=== PATIENT | female | born 1970 ===

== ENCOUNTER 2017-09-12 18:26 | Emergency (ER) | payer SELFPAY ==
[2017-09-12 18:26] VITALS: BMI 33.2
[2017-09-12 19:05] VITALS: BP 153/87; PULSE 69; RESP 16; TEMP 98.1; O2SAT 100
[2017-09-12] MEDS ORDERED: Naproxen 500 MG TAB PO STA (19:19)
[2017-09-12] MEDS ORDERED: Naproxen 500 MG TAB PO ONE (19:26)
--- NOTE | 2017-09-12 20:14 | ED PDOC ---
HPI: Back Time Seen by Provider: 09/12/17 19:15 Chief Complaint (Nursing): Back Pain Chief Complaint (Provider): Shoulder Pain History Per: Patient History/Exam Limitations: no limitations Onset/Duration Of Symptoms: Days (x1) Current Symptoms Are (Timing): Still Present Additional Complaint(s): Aniyah Martel is a 46 year old female with no past medical history who presents to the ED after tripping and falling backwards on the sidewalk @16:30. Denies loss of consciousness or head trauma. Notices scratches on left upper back and left shoulder pain. States she took nothing for pain. PMD: Provider TBD Past Medical History Reviewed: Historical Data, Nursing Documentation, Vital Signs Vital Signs: Last Vital Signs Temp 98.1 F 09/12/17 18:53 Pulse 69 09/12/17 18:53 Resp 16 09/12/17 18:53 BP 153/87 H 09/12/17 18:53 Pulse Ox 100 09/12/17 18:53 - Family History Family History: States: Unknown Family Hx - Home Medications Home Medications: Ambulatory Orders Medication Instructions Recorded Amoxicillin/Clavulanate [Augmentin 1 tab PO BID #10 tab 08/20/14 875 MG-125 MG] Naproxen 500 mg PO BID PRN #20 tab 08/20/14 Naproxen 1 tab PO Q12 PRN #14 tab 09/12/17 - Allergies Allergies/Adverse Reactions: Allergies Allergy/AdvReac Type Severity Reaction Status Date / Time No Known Allergies Allergy Verified 09/12/17 18:53 Review of Systems ROS Statement: Except As Marked, All Systems Reviewed And Found Negative Musculoskeletal: Positive for: Shoulder Pain (left) Skin: Positive for: Other (Upper back abrasions) Physical Exam - Reviewed Nursing Documentation Reviewed: Yes Vital Signs Reviewed: Yes - Physical Exam Appears: Positive for: Well, Non-toxic, No Acute Distress Head Exam: Positive for: ATRAUMATIC, NORMAL INSPECTION, NORMOCEPHALIC Skin: Positive for: Normal Color. Negative for: Rash Eye Exam: Positive for: Normal appearance Back: Negative for: Normal Inspection (Abrasions to upper thoracic back), L CVA Tenderness, R CVA Tenderness, Vertebral Tenderness Extremity: Negative for: Normal ROM (Limited left shoulder ROM due to pain.) Neurologic/Psych: Positive for: Alert, Oriented - ECG O2 Sat by Pulse Oximetry: 100 (RA) Pulse Ox Interpretation: Normal - Progress ED Course And Treament: xry of shoulder: neg for fx Medical Decision Making Medical Decision Making: Time: 19:19 Initial Impression: Fall Plan: --Naproxen 500 mg PO --X-Ray Shoulder Left --Reevaluation Scribe Attestation: Documented by Jaime Benson, acting as a scribe for Jeremias Borjas PA-C Provider Scribe Attestation: All medical record entries made by the Scribe were at my direction and personally dictated by me. I have reviewed the chart and agree that the record accurately reflects my personal performance of the history, physical exam, medical decision making, and the department course for this patient. I have also personally directed, reviewed, and agree with the discharge instructions and disposition. Disposition - Clinical Impression Clinical Impression: Shoulder contusion - Patient ED Disposition Is Patient to be Admitted: No - Disposition Referrals: [facility] [Outside] Disposition: Routine/Home Disposition Time: 19:58 Condition: FAIR Prescriptions: Naproxen 1 tab PO Q12 PRN #14 tab PRN Reason: Pain, Moderate (4-7) Instructions: Contusion in Adults (ED) Forms: [employer] (Algerian), [facility] ED School/Work Excuse Print Language: BULGARIAN
--- NOTE | 2017-09-13 07:42 | RAD ---
PROCEDURE: Radiographs of the Left Shoulder HISTORY: shoulder injury COMPARISON: No prior. FINDINGS: BONES: No acute fracture or destructive bony lesion identified. JOINTS: Normal. Glenohumeral and acromioclavicular joints preserved. No osteoarthritis. SOFT TISSUES: Normal. OTHER FINDINGS: None. IMPRESSION: Unremarkable radiographs of the left shoulder.
== END 2017-09-12 20:37 | disposition home or self-care (01) ==
LOC: H.ER 18:26
DX: S40.012A Contusion of left shoulder, initial encounter (principal); W01.0XXA Fall on same level from slipping, tripping and stumbling without subsequent striking against object, initial encounter; Y92.480 Sidewalk as the place of occurrence of the external cause

== ENCOUNTER 2017-12-05 16:13 | Emergency (ER) | payer SELFPAY ==
[2017-12-05 16:14] VITALS: BMI 33.2
[2017-12-05 16:25] VITALS: BP 107/70; PULSE 90; RESP 16; TEMP 99.7; O2SAT 98
--- NOTE | 2017-12-05 16:37 | ED PDOC ---
HPI: CCC, URI, Sore Throat Time Seen by Provider: 12/05/17 16:25 Chief Complaint (Nursing): Flu-like Symptoms Chief Complaint (Provider): Flu-like symptoms History Per: Patient History/Exam Limitations: no limitations Onset/Duration Of Symptoms: Days (x2) Current Symptoms Are (Timing): Still Present Associated Symptoms: Fever, Sore Throat, Cough, Nasal Congestion. denies: Vomiting, Diarrhea Ear Symptoms: Bilateral: None Additional Complaint(s): Aniyah Martel is a 47 year old female, with no significant past medical history, who presents to the emergency department complaining of fever, cough, congestion and sore throat onset for x2 days. Patient denies any chest pain, shortness of breath, hemoptysis, vomit or diarrhea. No further medical complaints. PMD: None provided. Past Medical History Reviewed: Historical Data, Nursing Documentation, Vital Signs Vital Signs: Last Vital Signs Temp 99.7 F H 12/05/17 16:22 Pulse 90 12/05/17 16:22 Resp 16 12/05/17 16:22 BP 107/70 12/05/17 16:22 Pulse Ox 98 12/05/17 16:40 - Medical History PMH: No Chronic Diseases - Surgical History Surgical History: No Surg Hx - Family History Family History: States: Unknown Family Hx - Social History Current smoker - smoking cessation education provided: No Alcohol: None Drugs: Denies - Home Medications Home Medications: Ambulatory Orders Medication Instructions Recorded Amoxicillin/Clavulanate [Augmentin 1 tab PO BID #10 tab 08/20/14 875 MG-125 MG] Naproxen 500 mg PO BID PRN #20 tab 08/20/14 Naproxen 1 tab PO Q12 PRN #14 tab 09/12/17 Benzonatate [Tessalon Perle] 100 mg PO Q8 PRN #30 capsule 12/05/17 Oseltamivir [Tamiflu] 75 mg PO BID #10 cap 12/05/17 - Allergies Allergies/Adverse Reactions: Allergies Allergy/AdvReac Type Severity Reaction Status Date / Time No Known Allergies Allergy Verified 09/12/17 18:53 Review of Systems ROS Statement: Except As Marked, All Systems Reviewed And Found Negative Constitutional: Positive for: Fever ENT: Positive for: Nose Congestion, Throat Pain Cardiovascular: Negative for: Chest Pain Respiratory: Positive for: Cough. Negative for: Shortness of Breath, Hemoptysis Gastrointestinal: Negative for: Vomiting, Diarrhea Physical Exam - Reviewed Nursing Documentation Reviewed: Yes Vital Signs Reviewed: Yes - Physical Exam Comments: Appears: No acute distress Skin: Normal color, Warm, Dry Eyes: Normal appearance, PERRL, EOMI ENT: Normal Cardiac: Regular rate and rhythm Lungs: Normal breath sounds, no respiratory distress, no accessory muscle use Abdominal: No tenderness Neuro: Alert, Oriented - ECG O2 Sat by Pulse Oximetry: 98 (RA) Pulse Ox Interpretation: Normal Medical Decision Making Medical Decision Making: Initial Impression: Influenza-like illness Initial Plan: --reevaluation ~ Scribe Attestation: Documented by Iván Damon, acting as a scribe for Ayad Raphael PA-C. Provider Scribe Attestation: All medical record entries made by the Scribe were at my direction and personally dictated by me. I have reviewed the chart and agree that the record accurately reflects my personal performance of the history, physical exam, medical decision making, and the department course for this patient. I have also personally directed, reviewed, and agree with the discharge instructions and disposition. Disposition - Clinical Impression Clinical Impression: Influenza - Patient ED Disposition Is Patient to be Admitted: No - Disposition Disposition: Routine/Home Disposition Time: 20:06 Condition: STABLE Prescriptions: Benzonatate [Tessalon Perle] 100 mg PO Q8 PRN #30 capsule PRN Reason: Cough Oseltamivir [Tamiflu] 75 mg PO BID #10 cap Instructions: Influenza (ED) Forms: [employer] (Khmer), [employer] (Faroese), [facility] ED School /Work Excuse Print Language: DANISH
== END 2017-12-05 17:17 | disposition home or self-care (01) ==
LOC: H.ER 16:13
DX: J11.1 Influenza due to unidentified influenza virus with other respiratory manifestations (principal)

== ENCOUNTER 2018-01-22 09:30 | Emergency (ER) | payer SELFPAY ==
[2018-01-22 09:33] VITALS: BMI 26.9
[2018-01-22 09:35] VITALS: BP 102/66; PULSE 81; RESP 16; TEMP 97.8; O2SAT 98
[2018-01-22] MEDS ORDERED: Sodium Chloride 0.9% 1,000 ML IV STA (10:59)
--- NOTE | 2018-01-22 10:59 | ED PDOC ---
HPI: Abdomen Time Seen by Provider: 01/22/18 10:59 Chief Complaint (Nursing): Abdominal Pain Chief Complaint (Provider): abd pain History Per: Patient Additional Complaint(s): 37-year-old female presents to emergency department with abdominal pain, nausea , emesis x 1 yesterday and diarrhea x 1 yesterday. No fever or chills. Patient denies consumption of any foods that could've cause stomach upset. Patient has had slight dysuria with no vaginal bleeding or discharge. She rates her pain as a 5 out of 10. Patient thinks she may be . PMD: [facility] Past Medical History Reviewed: Historical Data, Nursing Documentation, Vital Signs Vital Signs: Last Vital Signs Temp 97.8 F 01/22/18 09:34 Pulse 81 01/22/18 09:34 Resp 16 01/22/18 09:34 BP 102/66 01/22/18 09:34 Pulse Ox 98 01/22/18 13:40 - Medical History PMH: No Chronic Diseases - Surgical History Surgical History: No Surg Hx - Family History Family History: States: No Known Family Hx - Living Arrangements Living Arrangements: With Family - Social History Current smoker - smoking cessation education provided: No Alcohol: None Drugs: Denies - Home Medications Home Medications: Ambulatory Orders Medication Instructions Recorded Amoxicillin/Clavulanate [Augmentin 1 tab PO BID #10 tab 08/20/14 875 MG-125 MG] Naproxen 500 mg PO BID PRN #20 tab 08/20/14 Naproxen 1 tab PO Q12 PRN #14 tab 09/12/17 Benzonatate [Tessalon Perle] 100 mg PO Q8 PRN #30 capsule 12/05/17 Oseltamivir [Tamiflu] 75 mg PO BID #10 cap 12/05/17 Nitrofurantoin Macrocrystals 100 mg PO BID #14 cap 01/22/18 [Macrobid] Comb No.42/Folic Acid 1 tab PO DAILY #60 ctb 01/22/18 [Prena1 Chew] - Allergies Allergies/Adverse Reactions: Allergies Allergy/AdvReac Type Severity Reaction Status Date / Time No Known Allergies Allergy Verified 09/12/17 18:53 Review of Systems ROS Statement: Except As Marked, All Systems Reviewed And Found Negative Constitutional: Negative for: Fever, Chills Cardiovascular: Negative for: Chest Pain Respiratory: Negative for: Cough Gastrointestinal: Positive for: Nausea, Vomiting, Abdominal Pain, Diarrhea Genitourinary Female: Positive for: Dysuria. Negative for: Vaginal Discharge, Vaginal Bleeding Physical Exam - Reviewed Nursing Documentation Reviewed: Yes Vital Signs Reviewed: Yes - Physical Exam Appears: Positive for: Well, Non-toxic, No Acute Distress Skin: Negative for: Rash Eye Exam: Positive for: Normal appearance Cardiovascular/Chest: Positive for: Regular Rate, Rhythm Respiratory: Positive for: Normal Breath Sounds Gastrointestinal/Abdominal: Positive for: Tenderness (Mild diffuse tenderness in all 4 quadrants with no rebound or guarding, no distention) Back: Negative for: L CVA Tenderness, R CVA Tenderness Extremity: Positive for: Normal ROM Neurologic/Psych: Positive for: Alert, Oriented - Laboratory Results Result Diagrams: 01/22/18 11:30 01/22/18 11:30 Urine POC: Positive Urine dip results: Positive for: Leukocyte Esterase (small), Blood (moderate). Negative for: Nitrate, Ketones, Glucose, Bilirubin - ECG O2 Sat by Pulse Oximetry: 98 Pulse Ox Interpretation: Normal Medical Decision Making Medical Decision Makin47 year old with abd pain Plan: Urine test Urine dip CBC CMP Lipase IVF Urine test shows faint positive, confirmed with beta Quant which is only 104, consistent with very early . Patient has no bleeding at present. UTI noted, Macrobid prescription given. Patient was referred to [facility] clinic for follow-up. Prescription for vitamins also provided. Patient aware she can return to emergency department any time if acutely worse. Disposition - Clinical Impression Clinical Impression: , Urinary tract infection - Patient ED Disposition Is Patient to be Admitted: No Counseled Patient/Family Regarding: Studies Performed, Diagnosis, Need For Followup, Rx Given - Disposition [facility]errals: [facility] [Outside] Disposition: Routine/Home Disposition Time: 13:36 Condition: STABLE Additional Instructions: Your test today is positive but you are very early. Her taking vitamins. Take antibiotics as directed. Call women's clinic today to arrange for follow-up visit. Return any time to ED if acutely worse. Prescriptions: Nitrofurantoin Macrocrystals [Macrobid] 100 mg PO BID #14 cap Comb No.42/Folic Acid [Prena1 Chew] 1 tab PO DAILY #60 ctb Instructions: Urinary Tract Infections in Adults, - The First Month Forms: [employer] (Croatian) Results - Lab Results Lab Results: 01/22/18 01/22/18 01/22/18 11:51 11:40 11:30 WBC RBC Hgb Hct MCV MCH MCHC RDW Plt Count MPV Neut % (Auto) Lymph % (Auto) Lucas % (Auto) Eos % (Auto) Baso % (Auto) Neut # (Auto) Lymph # (Auto) Lucas # (Auto) Eos # (Auto) Baso # (Auto) Sodium 139 Potassium 4.3 Chloride 105 Carbon Dioxide 23 Anion Gap 15 BUN 7 Creatinine 0.7 Est GFR ( Amer) > 60 Est GFR (Non-Af Amer) > 60 Random Glucose 97 Calcium 8.7 Total Bilirubin 0.5 AST 22 ALT 27 Alkaline Phosphatase 84 Total Protein 7.4 Albumin 3.9 Globulin 3.5 Albumin/Globulin Ratio 1.1 Lipase 79 Beta HCG, Quant 104.42 Urine Color Yellow Urine Clarity Slighty-cloudy Urine pH 5.0 Ur Specific [place] 1.017 Urine Protein Negative Urine Glucose (UA) Neg Urine Ketones Negative Urine Blood Moderate Urine Nitrate Negative Urine Bilirubin Negative Urine Urobilinogen 0.2-1.0 Ur Leukocyte Esterase Small Urine RBC (Auto) 8 H Urine Microscopic WBC 7 H Ur Squamous Epith Cells 3 01/22/18 11:30 WBC 7.0 RBC 4.28 Hgb 11.7 L Hct 35.5 MCV 82.9 D MCH 27.4 MCHC 33.1 RDW 15.6 H Plt Count 182 MPV 10.0 Neut % (Auto) 77.4 H Lymph % (Auto) 12.6 L Lucas % (Auto) 6.8 Eos % (Auto) 2.5 Baso % (Auto) 0.7 Neut # (Auto) 5.4 Lymph # (Auto) 0.9 L Lucas # (Auto) 0.5 Eos # (Auto) 0.2 Baso # (Auto) 0.0 Sodium Potassium Chloride Carbon Dioxide Anion Gap BUN Creatinine Est GFR ( Amer) Est GFR (Non-Af Amer) Random Glucose Calcium Total Bilirubin AST ALT Alkaline Phosphatase Total Protein Albumin Globulin Albumin/Globulin Ratio Lipase Beta HCG, Quant Urine Color Urine Clarity Urine pH Ur Specific [place] Urine Protein Urine Glucose (UA) Urine Ketones Urine Blood Urine Nitrate Urine Bilirubin Urine Urobilinogen Ur Leukocyte Esterase Urine RBC (Auto) Urine Microscopic WBC Ur Squamous Epith Cells
[2018-01-22 11:45] LABS: BASO % 0.7 % (0.0-2.0); EOS # 0.2 K/uL (0.0-0.7); EOS % 2.5 % (0.0-4.0); HEMOGLOBIN 11.7 g/dL (12.0-16.0); LYMPH # 0.9 K/uL (1.0-4.3); LYMPH % 12.6 % (20.0-40.0); MEAN CELL VOLUME 82.9 fl (81.0-99.0); MEAN CORPUSCULAR HEMOGLOBIN 27.4 pg (27.0-31.0); MEAN CORPUSCULAR HGB CONC 33.1 g/dL (33.0-37.0); MONO # 0.5 K/uL (0.0-0.8); MONO % 6.8 % (0.0-10.0); NEUT # 5.4 K/uL (1.8-7.0); NEUT % 77.4 % (50.0-75.0); NRBC % 0.1 % (0.0-0.0); RBC 4.28 Mil/uL (3.80-5.20); RED CELL DISTRIBUTION WIDTH 15.6 % (11.5-14.5)
[2018-01-22 11:57] LABS: ALB/GLOB RATIO 1.1 (1.0-2.1); ALT/SGPT 27 U/L (9-52); AST/SGOT 22 U/L (14-36); BLOOD UREA NITROGEN 7 mg/dl (7-17); CALCIUM 8.7 mg/dL (8.4-10.2); GFR AFRICAN-AMERICAN > 60; GFR NON-AFRICAN AMERICAN > 60; LIPASE 79 U/L (23-300)
[2018-01-22 12:29] LABS: SQUAMOUS EPITHIAL 3 /hpf (0-5); URINE BILIRUBIN NEGATIVE (NEGATIVE); URINE BLOOD MODERATE (NEGATIVE); URINE CLARITY SLIGHTY-CLOUDY (Clear); URINE COLOR YELLOW (YELLOW); URINE GLUCOSE (UA) NEG (Normal); URINE LEUKOCYTE ESTERASE SMALL Leu/uL (Negative); URINE PROTEIN NEGATIVE (NEGATIVE); URINE UROBILINOGEN 0.2-1.0 mg/dL (0.2-1.0)
[2018-01-22 12:33] LABS: ALBUMIN 3.9 g/dL (3.5-5.0)
== END 2018-01-22 14:15 | disposition home or self-care (01) ==
LOC: H.ER 09:30
DX: O23.41 Unspecified infection of urinary tract in pregnancy, first trimester (principal)
CPT/HCPCS: 80053; 81003; 81025; 83690; 84702; 85025; 87086; 99283; J7040

== ENCOUNTER 2018-02-04 07:55 | Emergency (ER) | payer SELFPAY ==
[2018-02-04 07:57] VITALS: BMI 25.2
[2018-02-04 07:59] VITALS: RESP 18
--- NOTE | 2018-02-04 08:55 | ED PDOC ---
HPI: Abdomen Time Seen by Provider: 02/04/18 08:06 Chief Complaint (Nursing): Abdominal Pain Chief Complaint (Provider): Abdominal pain and vaginal bleeding History Per: Patient History/Exam Limitations: no limitations Onset/Duration Of Symptoms: Days (02/04/18) Current Symptoms Are (Timing): Still Present Location Of Pain/Discomfort: Periumbilical Quality Of Discomfort: "Pain" Associated Symptoms: Nausea. denies: Fever Additional Complaint(s): 47 year old female presents to the ED with complaining of lower abdominal pain and vaginal bleeding onset today steamer tender. Also reports of nausea. Patient is : 5 and Para: 4 and was taking Macrobid. Her last menstrual period was on 12/12/17. She was a [facility] 2 week ago for abdominal pain. Denies fever. PMD: No Family Provider Abnormal Vaginal Bleeding: Yes Last Menstral Period: 12/12/17 : 5 Para: 4 Past Medical History Reviewed: Historical Data, Nursing Documentation, Vital Signs Vital Signs: Last Vital Signs Temp 97.8 F 02/04/18 07:58 Pulse 66 02/04/18 07:58 Resp 18 02/04/18 07:58 BP 122/74 02/04/18 07:58 Pulse Ox 98 02/04/18 09:02 - Medical History PMH: No Chronic Diseases - Surgical History Surgical History: No Surg Hx - Family History Family History: States: Unknown Family Hx - Social History Current smoker - smoking cessation education provided: No Alcohol: None Drugs: Denies - Home Medications Home Medications: Ambulatory Orders Medication Instructions Recorded Amoxicillin/Clavulanate [Augmentin 1 tab PO BID #10 tab 08/20/14 875 MG-125 MG] Naproxen 500 mg PO BID PRN #20 tab 08/20/14 Naproxen 1 tab PO Q12 PRN #14 tab 09/12/17 Benzonatate [Tessalon Perle] 100 mg PO Q8 PRN #30 capsule 12/05/17 Oseltamivir [Tamiflu] 75 mg PO BID #10 cap 12/05/17 Nitrofurantoin Macrocrystals 100 mg PO BID #14 cap 01/22/18 [Macrobid] Comb No.42/Folic Acid 1 tab PO DAILY #60 ctb 01/22/18 [Prena1 Chew] - Allergies Allergies/Adverse Reactions: Allergies Allergy/AdvReac Type Severity Reaction Status Date / Time No Known Allergies Allergy Verified 02/04/18 08:06 Review of Systems ROS Statement: Except As Marked, All Systems Reviewed And Found Negative Constitutional: Negative for: Fever Gastrointestinal: Positive for: Nausea, Abdominal Pain (lower) Genitourinary Female: Positive for: Vaginal Bleeding Physical Exam - Reviewed Nursing Documentation Reviewed: Yes Vital Signs Reviewed: Yes - Physical Exam Appears: Positive for: Non-toxic, No Acute Distress Head Exam: Positive for: ATRAUMATIC, NORMAL INSPECTION, NORMOCEPHALIC Skin: Positive for: Normal Color, Warm, Dry Eye Exam: Positive for: EOMI, Normal appearance, PERRL ENT: Positive for: Normal ENT Inspection Neck: Positive for: Normal, Painless ROM, Supple. Negative for: Decreased ROM Cardiovascular/Chest: Positive for: Regular Rate, Rhythm. Negative for: Murmur Respiratory: Positive for: Normal Breath Sounds. Negative for: Decreased Breath Sounds, Accessory Muscle Use, Respiratory Distress Gastrointestinal/Abdominal: Positive for: Soft, Tenderness (suprapublic) Back: Positive for: Normal Inspection. Negative for: L CVA Tenderness, R CVA Tenderness Extremity: Positive for: Normal ROM. Negative for: Tenderness, Pedal Edema, Deformity Neurologic/Psych: Positive for: Alert, Oriented (x3). Negative for: Motor/ Sensory Deficits - Laboratory Results Result Diagrams: 02/04/18 08:40 - ECG O2 Sat by Pulse Oximetry: 98 (RA) Pulse Ox Interpretation: Normal Medical Decision Making Medical Decision Making: Time: 831 Initial Plan: --BBK Type and Screen --BETA-HCG, Quantitative --CBC w/ differential --Transvaginal [US] --Reevaluation Time: 843 Urine dip presented large amount of blood and no nitrates. Scribe Attestation: Documented by Xiao Bhatt, acting as a scribe for Ina Mckeon MD Provider Scribe Attestation: All medical record entries made by the Scribe were at my direction and personally dictated by me. I have reviewed the chart and agree that the record accurately reflects my personal performance of the history, physical exam, medical decision making, and the department course for this patient. I have also personally directed, reviewed, and agree with the discharge instructions and disposition. 1200: US findings d/w Dr. Ovalle. No acute pathology or suspicious findings in the ovaries. Patient passed tissue like material when she went to the prior to US. labs reviewed. Despite rise in b-hcg, most likely is that patient had spontaneous miscarriage. Disposition - Clinical Impression Clinical Impression: Spontaneous - Patient ED Disposition Is Patient to be Admitted: No Doctor Will See Patient In The: Office - Disposition Referrals: [facility] [place] [Outside] [facility] [[facility]] Disposition: Routine/Home Disposition Time: 12:13 Condition: STABLE Additional Instructions: Take Tylenol 2 tablets every 4-6 hours as needed for pain Instructions: Miscarriage Forms: [employer] (Tristanian) Print Language: YORUBA - POA Present On Arrival: None
[2018-02-04 09:01] LABS: BASO # 0.1 K/uL (0.0-0.2); BASO % 0.6 % (0.0-2.0); EOS # 0.3 K/uL (0.0-0.7); EOS % 3.1 % (0.0-4.0); HEMOGLOBIN 11.1 g/dL (12.0-16.0); LYMPH # 1.8 K/uL (1.0-4.3); LYMPH % 18.7 % (20.0-40.0); MEAN CORPUSCULAR HEMOGLOBIN 27.7 pg (27.0-31.0); MEAN CORPUSCULAR HGB CONC 32.6 g/dL (33.0-37.0); MEAN PLATELET VOLUME 10.2 fl (7.2-11.7); MONO # 0.7 K/uL (0.0-0.8); MONO % 7.4 % (0.0-10.0); NEUT # 6.9 K/uL (1.8-7.0); NEUT % 70.2 % (50.0-75.0); NRBC % 0.2 % (0.0-0.0); RBC 4.01 Mil/uL (3.80-5.20); RED CELL DISTRIBUTION WIDTH 16.6 % (11.5-14.5); WHITE BLOOD COUNT 9.8 K/uL (4.8-10.8)
[2018-02-04 09:03] LABS: MEAN CELL VOLUME 85.1 fl (81.0-99.0)
[2018-02-04 12:33] VITALS: BP 105/60; PULSE 54; TEMP 98.4; O2SAT 99
--- NOTE | 2018-02-05 19:52 | US ---
HISTORY: vaginal bleeding COMPARISON: None available. TECHNIQUE: Transvaginal pelvic ultrasound was performed. FINDINGS: UTERUS: Measures 8.3 x 4.7 x 5.6 cm. Anteverted, normal in size and with heterogeneous myometrial echotexture in the fundus. No fibroid or other mass lesion seen. ENDOMETRIUM: Measures 8.0 mm in diameter. The central endometrial echo complex is grossly normal in appearance. No evidence of intrauterine gestation. CERVIX: No cervical abnormality identified. RIGHT OVARY: Measures 2.6 x 1.6 x 1.8 cm. No solid mass. Normal flow. LEFT OVARY: Measures 2.2 x 1.8 x 2.7 cm. No solid mass. Normal flow. FREE FLUID: No significant free fluid noted. OTHER FINDINGS: None. IMPRESSION: No evidence of intrauterine gestation. Unremarkable pelvic ultrasound.
== END 2018-02-04 12:33 | disposition home or self-care (01) ==
LOC: H.ER 07:55
DX: O03.9 Complete or unspecified spontaneous abortion without complication (principal)

== ENCOUNTER 2018-08-20 10:31 | Emergency (ER) | payer SELFPAY ==
--- NOTE | 2018-08-20 11:06 | ED PDOC ---
HPI: Headache Time Seen by Provider: 08/20/18 10:53 History Per: Patient Onset/Duration Of Symptoms: Other (3 weeks) Current Symptoms Are (Timing): Intermittent Episodes Severity: Mild Quality: Aching Preceeding Symptoms: denies: Visual Disturbances Associated Symptoms: denies: Photophobia, Nausea, Vomiting Additional Complaint(s): Frontal headaches x 3 weeks. Assoc with dizziness. Denies weakness or parasthesias. denies injury or fever. Past Medical History - Medical History PMH: No Chronic Diseases - Family History Family History: States: Unknown Family Hx - Home Medications Home Medications: Ambulatory Orders Medication Instructions Recorded Amoxicillin/Clavulanate [Augmentin 1 tab PO BID #10 tab 08/20/14 875 MG-125 MG] Naproxen 500 mg PO BID PRN #20 tab 08/20/14 Naproxen 1 tab PO Q12 PRN #14 tab 09/12/17 Benzonatate [Tessalon Perle] 100 mg PO Q8 PRN #30 capsule 12/05/17 Oseltamivir [Tamiflu] 75 mg PO BID #10 cap 12/05/17 Nitrofurantoin Macrocrystals 100 mg PO BID #14 cap 01/22/18 [Macrobid] Comb No.42/Folic Acid 1 tab PO DAILY #60 ctb 01/22/18 [Prena1 Chew] Naproxen [Naprosyn] 500 mg PO Q12H #20 tab 08/20/18 - Allergies Allergies/Adverse Reactions: Allergies Allergy/AdvReac Type Severity Reaction Status Date / Time No Known Allergies Allergy Verified 02/04/18 08:06 Review of Systems ROS Statement: Except As Marked, All Systems Reviewed And Found Negative Neurological: Positive for: Headache, Dizziness Physical Exam - Reviewed Nursing Documentation Reviewed: Yes Vital Signs Reviewed: Yes - Physical Exam Appears: Positive for: Non-toxic, No Acute Distress Head Exam: Positive for: ATRAUMATIC, NORMAL INSPECTION, NORMOCEPHALIC Skin: Positive for: Normal Color, Warm, DRY Eye Exam: Positive for: EOMI, Normal appearance, PERRL ENT: Positive for: Normal ENT Inspection Neck: Positive for: Normal, Painless ROM Cardiovascular/Chest: Positive for: Regular Rate, Rhythm Respiratory: Positive for: CNT, Normal Breath Sounds Gastrointestinal/Abdominal: Positive for: Normal Exam, Soft Back: Positive for: Normal Inspection Extremity: Positive for: Normal ROM Neurologic/Psych: Positive for: Alert, Oriented. Negative for: Motor/Sensory Deficits Disposition - Clinical Impression Clinical Impression: Headache - Patient ED Disposition Is Patient to be Admitted: No Counseled Patient/Family Regarding: Studies Performed, Diagnosis, Need For Followup, Rx Given - Disposition Referrals: Samantha Dasilva MD [Medical Doctor] - Disposition: Routine/Home Disposition Time: 12:46 Condition: FAIR Prescriptions: Naproxen [Naprosyn] 500 mg PO Q12H #20 tab Instructions: Headache, Adult Print Language: URDU
[2018-08-20 11:20] VITALS: RESP 19; TEMP 97
--- NOTE | 2018-08-20 12:27 | CT ---
date of service: 08/20/2018 PROCEDURE: CT HEAD WITHOUT CONTRAST. HISTORY: Headache COMPARISON: 08/20/2014 TECHNIQUE: Axial computed tomography images were obtained through the head/brain without intravenous contrast. Radiation dose: Total exam DLP = 675.14 mGy-cm. This CT exam was performed using one or more of the following dose reduction techniques: Automated exposure control, adjustment of the mA and/or kV according to patient size, and/or use of iterative reconstruction technique. FINDINGS: HEMORRHAGE: No intracranial hemorrhage. BRAIN: No mass effect or edema. No atrophy or chronic microvascular ischemic changes. VENTRICLES: Unremarkable. No hydrocephalus. CALVARIUM: Unremarkable. PARANASAL SINUSES: Unremarkable as visualized. No significant inflammatory changes. MASTOID AIR CELLS: Unremarkable as visualized. No inflammatory changes. OTHER FINDINGS: None. IMPRESSION: No intracranial mass, hemorrhage or evidence of acute infarct.
[2018-08-20 13:13] VITALS: BP 110/78; PULSE 78; O2SAT 98
== END 2018-08-20 13:13 | disposition home or self-care (01) ==
LOC: H.ER 10:31
DX: R51 Headache (principal)

== ENCOUNTER 2018-09-04 12:08 | Emergency (ER) | payer OTHER ==
[2018-09-04 12:45] VITALS: BP 118/71; PULSE 61; RESP 18; TEMP 98.6; O2SAT 99
[2018-09-04] MEDS ORDERED: DiphenhydrAMINE 50 mg/ml Inj IVP STA (13:39)
[2018-09-04 14:12] LABS: BASO # 0.1 K/uL (0.0-0.2); EOS # 0.3 K/uL (0.0-0.7); EOS % 3.6 % (0.0-4.0); HEMOGLOBIN 11.7 g/dL (12.0-16.0); LYMPH # 1.9 K/uL (1.0-4.3); LYMPH % 23.7 % (20.0-40.0); MEAN CELL VOLUME 88.6 fl (81.0-99.0); MEAN CORPUSCULAR HEMOGLOBIN 28.5 pg (27.0-31.0); MEAN CORPUSCULAR HGB CONC 32.1 g/dL (33.0-37.0); MEAN PLATELET VOLUME 9.9 fl (7.2-11.7); MONO # 0.6 K/uL (0.0-0.8); MONO % 7.1 % (0.0-10.0); NEUT # 5.1 K/uL (1.8-7.0); NEUT % 64.6 % (50.0-75.0); NRBC % 0.2 % (0.0-0.0); RBC 4.11 Mil/uL (3.80-5.20); RED CELL DISTRIBUTION WIDTH 14.6 % (11.5-14.5); WHITE BLOOD COUNT 7.8 K/uL (4.8-10.8)
[2018-09-04 14:19] LABS: BLOOD UREA NITROGEN 9 mg/dl (7-17); CALCIUM 9.3 mg/dL (8.4-10.2); GFR NON-AFRICAN AMERICAN > 60
--- NOTE | 2018-09-04 16:03 | ED PDOC ---
HPI: Headache Time Seen by Provider: 09/04/18 13:08 Chief Complaint (Nursing): Headache Chief Complaint (Provider): Headache History Per: Patient History/Exam Limitations: no limitations Onset/Duration Of Symptoms: Days (x1 month) Additional Complaint(s): 47 year old female with no significant past medical history presents to the ED complaining of a global headache for the past x1 month. Patient describes the pain as a pressure and notes that it is worse on the right side than the left. She describes the headache as a tight band around her head. Patient denies taking any medication today but states she was taking Naproxen at home and her last dose was x3 days ago. Patient reports she was seen here on August 20 for the same symptoms and her head CT at that time was unremarkable. Patient states headache is resolved by taking medicine but then returns and symptoms are unchanged from her prior visit. She denies fever, chills, vision changes, nausea, vomiting, chest pain, cough, shortness of breath, ear pain, throat pain, dizziness, abdominal pain, or any other complaints. Her LMP was August 02. PMD: Clinic Past Medical History Reviewed: Historical Data, Nursing Documentation, Vital Signs Vital Signs: Last Vital Signs Temp 98.6 F 09/04/18 12:41 Pulse 61 09/04/18 12:41 Resp 18 09/04/18 12:41 BP 118/71 09/04/18 12:41 Pulse Ox 99 09/04/18 12:41 - Medical History PMH: No Chronic Diseases - Surgical History Surgical History: No Surg Hx - Family History Family History: States: Unknown Family Hx - Home Medications Home Medications: Ambulatory Orders Medication Instructions Recorded Amoxicillin/Clavulanate [Augmentin 1 tab PO BID #10 tab 08/20/14 875 MG-125 MG] RX: Naproxen 500 mg PO BID PRN #20 tab 08/20/14 RX: Naproxen 1 tab PO Q12 PRN #14 tab 09/12/17 Benzonatate [Tessalon Perle] 100 mg PO Q8 PRN #30 capsule 12/05/17 Oseltamivir [Tamiflu] 75 mg PO BID #10 cap 12/05/17 Nitrofurantoin Macrocrystals 100 mg PO BID #14 cap 01/22/18 [Macrobid] Comb No.42/Folic Acid 1 tab PO DAILY #60 ctb 01/22/18 [Prena1 Chew] Naproxen [Naprosyn] 500 mg PO Q12H #20 tab 08/20/18 Acetaminophen/Butalbital/Caf 1 tab PO Q6 PRN #12 tab 09/04/18 [Fioricet] - Allergies Allergies/Adverse Reactions: Allergies Allergy/AdvReac Type Severity Reaction Status Date / Time No Known Allergies Allergy Verified 02/04/18 08:06 Review of Systems ROS Statement: Except As Marked, All Systems Reviewed And Found Negative Constitutional: Negative for: Fever, Chills Eyes: Negative for: Vision Change ENT: Negative for: Ear Pain, Throat Pain Cardiovascular: Negative for: Chest Pain Respiratory: Negative for: Cough, Shortness of Breath Gastrointestinal: Negative for: Nausea, Vomiting Neurological: Positive for: Headache. Negative for: Dizziness Physical Exam - Reviewed Nursing Documentation Reviewed: Yes Vital Signs Reviewed: Yes - Physical Exam Comments: GENERAL APPEARANCE: Patient is awake, alert, oriented x 3, in no acute distress. Resting comfortably. SKIN: Warm, dry; (-) cyanosis; (-) rash. HEAD: (-) scalp swelling or tenderness, (-) temporal artery tenderness. EYES: (-) conjunctival pallor, (-) scleral icterus. ENMT: (-) sinus tenderness; mucous membranes are moist. Pharynx: clear, uvula midline (-) erythema (-) exudate. Airway patent, (-) stridor. NECK: Supple, FROM (-) tenderness, (-) stiffness, (-) meningismus, (-) lymphadenopathy. CHEST AND RESPIRATORY: (-) rales, (-) rhonchi, (-) wheezes; breath sounds equal bilaterally. Respirations even and nonlabored. HEART AND CARDIOVASCULAR: (-) irregularity ABDOMEN AND GI: Soft; (-) tenderness (-) guarding (-) distention. EXTREMITIES: (-) deformity. NEURO AND PSYCH: Mental status as above. 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 Strength symmetric. Gait: steady. Speech: clear. (-) aphasia. Cerebellar tests intact. - Laboratory Results Result Diagrams: 09/04/18 14:00 09/04/18 14:00 - ECG O2 Sat by Pulse Oximetry: 99 (RA) Pulse Ox Interpretation: Normal Medical Decision Making Medical Decision Making: Time: 13:35 Impression: Headache, probable tension headache Initial Plan: * BMP * * CBC w/ diff * Benadryl IVP (not driving home) * Reglan IVP * Toradol IVP Upreg: negative CT head without contrast from ED visit on 08/20 with no intracranial abnormality. [id number] Labs reviewed and grossly unremarkable. Case discussed with ED MD Ovalle, who is agreeable to discharge. On re-evaluation, patient reports improvement of symptoms. On exam, patient remains AAOx3, in no acute distress. Lungs clear to auscultation, cardiac RRR, abdomen soft, nontender, repeat neuro exam shows no focal findings. Vitals stable. Lab/diagnostic results d/w the patient in great detail. Diagnosis of headache, probable tension headache d/w the patient. Based on history, exam and diagnostic results, plan will be for discharge and outpatient follow up. Patient instructed to follow up with PMD/clinic/ referred provider in 1-2 days without fail. Advised to take medication as prescribed. Return to the ED at any time for any new or worsening symptoms. Patient states that she fully agrees with and understands the discharge instructions. States that she agrees with the plan and disposition. Verbalized and repeated discharge instructions and plan. I have given the patient opportunity to ask any additional questions. Scribe Attestation: Documented by Fco Arita, acting as a scribe for Cynthia Worley PA-C. Provider Scribe Attestation: All medical record entries made by the Scribe were at my direction and personally dictated by me. I have reviewed the chart and agree that the record accurately reflects my personal performance of the history, physical exam, medical decision making, and the department course for this patient. I have also personally directed, reviewed, and agree with the discharge Disposition - Clinical Impression Clinical Impression: Tension headache, Headache - Patient ED Disposition Is Patient to be Admitted: No Counseled Patient/Family Regarding: Studies Performed, Diagnosis, Need For Followup, Rx Given - Disposition Referrals: [facility] [place] [Outside] Samantha Dasilva MD [Medical Doctor] - Disposition: Routine/Home Disposition Time: 16:00 Condition: STABLE Additional Instructions: La atencin mdica de emergencia que recibi hoy se dirigi a diane sntomas agudos. Si le recetaron algn medicamento, llnelo y tmelo segn las indicaciones. Los sntomas pueden tardar varios ontiveros en resolverse. Regrese a la mathieu de urgencias si diane sntomas empeoran, no mejoran o si tiene otros problemas. Comunquese con asif mdico dentro de 2 ontiveros para kei nueva evaluacin y carolina un seguimiento o llame a maya de los mdicos / clnicas a los que wade sido referido y que figuran en el formulario de Informacin de visita al paciente que se incluye en asif paquete de monik. Lleve con usted a asif consulta de seguimiento toda la documentacin que recibi del monik junto con los medicamentos que est tomando. Nuestro tratamiento no puede reemplazar la atencin mdica continua por parte de un proveedor de atencin primaria (PCP) fuera del departamento de emergencias. Prescriptions: Acetaminophen/Butalbital/Caf [Fioricet] 1 tab PO Q6 PRN #12 tab PRN Reason: Headache Instructions: Tension Headache, Headache, Adult Forms: Lets[employer]cco (Irish) Print Language: PORTUGUESE - POA Present On Arrival: None Results - Lab Results Lab Results: 09/04/18 09/04/18 14:00 14:00 WBC 7.8 RBC 4.11 Hgb 11.7 L Hct 36.4 MCV 88.6 D MCH 28.5 MCHC 32.1 L RDW 14.6 H Plt Count 232 MPV 9.9 Neut % (Auto) 64.6 Lymph % (Auto) 23.7 Weld % (Auto) 7.1 Eos % (Auto) 3.6 Baso % (Auto) 1.0 Neut # (Auto) 5.1 Lymph # (Auto) 1.9 Weld # (Auto) 0.6 Eos # (Auto) 0.3 Baso # (Auto) 0.1 Sodium 141 Potassium 3.9 Chloride 108 H Carbon Dioxide 24 Anion Gap 13 BUN 9 Creatinine 0.5 L Est GFR ( Amer) > 60 Est GFR (Non-Af Amer) > 60 Random Glucose 86 Calcium 9.3
== END 2018-09-04 16:21 | disposition home or self-care (01) ==
LOC: H.ER 12:08 → SUPCPDRO 12:08 → H.ER 16:21
DX: G44.209 Tension-type headache, unspecified, not intractable (principal)
CPT/HCPCS: 80048; 81025; 85025; 96374; 96375; 99284; J1200; J1885; J2765